=== PATIENT | female | born 1990 | race Caucasian/White ===

== ENCOUNTER 2016-12-21 17:18 | Emergency (ER) | payer SELFPAY ==
[~2016-12-21] VITALS: Ht 160 cm; Wt 81.7 kg
[~2016-12-21 17:18] MED LIST: TAB-TAB PO
[2016-12-21 17:20] VITALS: BP 118/78; PULSE 81; RESP 14; TEMP 98.4; O2SAT 98
--- NOTE | 2016-12-21 19:07 | PD ---
HPI Chief Complaint: Cold / Flu Symptoms Time Seen by Provider: 18:55 Travel History International Travel<30 days: No Contact w/Intl Traveler<30days: No Traveled to known affect area: No History of Present Illness HPI The patient is a 26-year-old female that has a sore throat for 3 days. She began vomiting today. She denies any diarrhea or abdominal pain. She has never had any abdominal surgeries and still has her gallbladder and appendix. She denies any fever, dysuria, frequency, urgency. She denies any cough. She has some slight ear pain but thinks this probably is from her sore throat. She is sexually active without protection and there is a possibility of . She does not have any insurance or primary care physician. She comes from [place]. She does not smoke. [facility] Past Medical History Asthma: Yes Diminished Hearing: No Respiratory: Yes (Asthma ) Immunizations Current: Yes ?: Not LMP: 11/11/16 : 1 Para: 0 Past Surgical History Other Surgery: Yes (BILATERAL CHEST TUBES R/T PNEUMONIA) Social History Alcohol Use: Yes (SOCIALLY) Tobacco Use: No Substance Use: No Allergies-Medications (Allergen,Severity, Reaction): Coded Allergies: No Known Allergies (Unverified , 12/21/16) Reported Meds & Prescriptions Reported Meds & Active Scripts Active Reported Lexapro (Escitalopram Oxalate) 20 Mg Tab 20 Mg PO DAILY Review of Systems Except as stated in HPI: all other systems reviewed are Neg Physical Exam Narrative GENERAL: The patient appears moderately dehydrated but is alert, oriented 3 and slight apparent distress with her sore throat. Her vital signs are normal. SKIN: Focused skin assessment warm/dry. HEAD: Atraumatic. Normocephalic. EYES: Pupils equal and round. No scleral icterus. No injection or drainage. ENT: No nasal bleeding or discharge. Mucous membranes pink and moist. The tympanic membranes are clear but the throat is erythematous without exudate or abscess. NECK: Trachea midline. No JVD. CARDIOVASCULAR: Regular rate and rhythm. No murmur appreciated. RESPIRATORY: No accessory muscle use. Clear to auscultation. Breath sounds equal bilaterally. GASTROINTESTINAL: Abdomen soft, non-tender, nondistended. Hepatic and splenic margins not palpable. No guarding or rebound is present. MUSCULOSKELETAL: No obvious deformities. No clubbing. No cyanosis. No edema. NEUROLOGICAL: Awake and alert. No obvious cranial nerve deficits. Motor grossly within normal limits. Normal speech. PSYCHIATRIC: Appropriate mood and affect; insight and judgment normal. Data Data Last Documented VS Vital Signs Date Time Temp Pulse Resp B/P Pulse Ox O2 Delivery O2 Flow Rate FiO2 12/21/16 19:35 18 100 Room Air 12/21/16 19:35 98.2 79 137/82 Orders Complete Blood Count With Diff (12/21/16 19:04) Basic Metabolic Panel (Bmp) (12/21/16 19:04) Beta Hcg (Quant/Titer) (12/21/16 19:04) Sodium Chlor 0.9% 1000 Ml Inj (Ns 1000 M (12/21/16 19:15) Ondansetron Inj (Zofran Inj) (12/21/16 19:15) Group A Rapid Strep Screen (12/21/16 19:09) Strep Culture (Group A) (12/21/16 19:30) Labs Laboratory Tests Test 12/21/16 19:35 White Blood Count 13.8 TH/MM3 Red Blood Count 4.10 MIL/MM3 Hemoglobin 10.5 GM/DL Hematocrit 32.6 % Mean Corpuscular Volume 79.4 FL Mean Corpuscular Hemoglobin 25.5 PG Mean Corpuscular Hemoglobin 32.1 % Concent Red Cell Distribution Width 16.0 % Platelet Count 225 TH/MM3 Mean Platelet Volume 10.1 FL Neutrophils (%) (Auto) 74.6 % Lymphocytes (%) (Auto) 14.7 % Monocytes (%) (Auto) 8.2 % Eosinophils (%) (Auto) 0.2 % Basophils (%) (Auto) 2.3 % Neutrophils # (Auto) 10.4 TH/MM3 Lymphocytes # (Auto) 2.0 TH/MM3 Monocytes # (Auto) 1.1 TH/MM3 Eosinophils # (Auto) 0.0 TH/MM3 Basophils # (Auto) 0.3 TH/MM3 CBC Comment DIFF FINAL Differential Comment Sodium Level 139 MEQ/L Potassium Level 3.8 MEQ/L Chloride Level 106 MEQ/L Carbon Dioxide Level 24.4 MEQ/L Anion Gap 9 MEQ/L Blood Urea Nitrogen 10 MG/DL Creatinine 0.68 MG/DL Estimat Glomerular Filtration 105 ML/MIN Rate Random Glucose 84 MG/DL Calcium Level 8.3 MG/DL Human Chorionic Gonadotropin, LESS THAN 1 Quant MIU/ML MDM Medical Decision Making Medical Screen Exam Complete: Yes Emergency Medical Condition: Yes Medical Record Reviewed: Yes Interpretation(s) The CBC shows a white count of 13,800 with a mild anemia with a hemoglobin of 10.5 and hematocrit of 32.6. It is otherwise unremarkable. The strep screen is negative for group A strep antigen. The basic metabolic profile is normal and the beta-hCG is less than 1. Differential Diagnosis Dehydration, anemia, electrolyte disorder, viral syndrome, strep pharyngitis, viral pharyngitis Narrative Course By history and clinical examination the patient was mildly dehydrated. It is now a 851 PM and the patient has no nausea. She is successfully drinking Gatorade now. Impression: Viral syndrome with viral pharyngitis Plan: The patient be given Phenergan every 6 hours as needed for nausea and increase clear liquid intake. She will get a 4 day work excuse. Diagnosis Primary Impression: Viral syndrome Additional Impression: Viral pharyngitis Additional Instructions: As we discussed, it is important to increase clear liquid intake. The Phenergan regularly, every 6 hours to prevent nausea/vomiting so that you are able to hydrate herself well. Follow-up next week with a primary care physician. Med/Other Pt SpecificInfo: Prescription(s) given Scripts Promethazine (Phenergan)25 Mg [id number] Mg PO Q6H PRN (NAUSEA OR VOMITING) #21 TAB Ref 0 Prov:Anuj De Jesus MD 12/21/16 Disposition: 01 DISCHARGE HOME Condition: Stable Anuj De Jesus MD Dec 21, 2016 19:07
[2016-12-21] MEDS ORDERED: ONDANSETRON HCL 4 MG/2 ML VIAL IV ONE (19:15)
[2016-12-21 19:35] VITALS: BP 137/82; PULSE 79; RESP 18; TEMP 98.2; O2SAT 100
[2016-12-21] MEDS: SODIUM CHLOR 0.9% 1000 ML INJ 1,000 ML IV SCH ×2 (19:43→20:32)
[2016-12-21 19:47] LABS: AUTOMATED NEUTROPHIL # 10.4 TH/MM3 (1.8-7.7); BASOPHIL # 0.3 TH/MM3 (0-0.2); BASOPHIL % 2.3 % (0.0-2.0); EOSINOPHIL % 0.2 % (0.0-4.0); HEMATOCRIT 32.6 % (35.0-46.0); LYMPH % 14.7 % (9.0-44.0); MEAN CELL VOLUME 79.4 FL (80.0-100.0); MEAN CORPUSCULAR HEMOGLOBIN 25.5 PG (27.0-34.0); MEAN CORPUSCULAR HGB CONC 32.1 % (32.0-36.0); MONO % 8.2 % (0.0-8.0); NEUT % 74.6 % (16.0-70.0); PLATELET COUNT 225 TH/MM3 (150-450); WHITE BLOOD COUNT 13.8 TH/MM3 (4.0-11.0)
[2016-12-21] MEDS ORDERED: LEXA20TA PO (19:57)
[2016-12-21 19:59] LABS: HEMO FLAGS DIFF FINAL
[2016-12-21 20:00] VITALS: BP 124/68; PULSE 82; RESP 18; O2SAT 100
[2016-12-21 20:16] LABS: CHLORIDE 106 MEQ/L (98-107); POTASSIUM 3.8 MEQ/L (3.5-5.1); SODIUM (NA) 139 MEQ/L (136-145)
[2016-12-21 20:18] LABS: ANION GAP 9 MEQ/L (5-15); BICARBONATE 24.4 MEQ/L (21.0-32.0)
[2016-12-21 20:19] LABS: BLOOD UREA NITROGEN 10 MG/DL (7-18)
[2016-12-21 20:22] LABS: GLOMERULAR FILTRATION RATE 105 ML/MIN (>89)
[2016-12-21 20:26] LABS: BETA HCG QUANT LESS THAN 1 MIU/ML (0-5)
[2016-12-21] MEDS ORDERED: PROM25TA10 PO (20:53)
[2016-12-21 21:00] VITALS: BP 119/71; PULSE 80; RESP 18; O2SAT 100
[2016-12-21 21:30] VITALS: BP 125/78
== END 2016-12-21 21:33 | disposition home or self-care (01) ==
LOC: PHED 17:18
DX: D64.9 Anemia, unspecified (principal); J02.8 Acute pharyngitis due to other specified organisms; B34.9 Viral infection, unspecified
CPT/HCPCS: 80048; 84702; 85025; 87081; 87880; 96361; 96374; 99284; J2405; J7030

== ENCOUNTER 2017-01-30 23:37 | Emergency (ER) | payer SELFPAY ==
[~2017-01-30] VITALS: Ht 167.6 cm; Wt 88.5 kg
[~2017-01-30 23:37] MED LIST changes: +LEXA20TA PO; +PROM25TA10 PO; -TAB-TAB PO
[2017-01-30 23:45] VITALS: BP 123/84; PULSE 84; RESP 16; TEMP 97.8; O2SAT 100
[2017-01-31 00:27] LABS: BLOOD, URINE TRACE (NEG); GLUCOSE,URINE NEG (NEG); KETONE, URINE NEG (NEG); NITRITE,URINE NEG (NEG)
[2017-01-31 00:33] LABS: BACTERIA, URINE RARE /hpf; COMMENT (UR) CULT NOT INDICATED; CULTURE IF INDICATED CULT NOT INDICATED; URINE COLOR YELLOW (YELLW/STRAW); WBC, URINE 0-2 /hpf (0-5)
[2017-01-31] MEDS ORDERED: KETOROLAC TROMETHAMINE 30 MG/ML (IVP) VIAL IV PUSH ONE (00:45)
[2017-01-31 01:07] LABS: AUTOMATED NEUTROPHIL # 6.4 TH/MM3 (1.8-7.7); BASOPHIL % 0.3 % (0.0-2.0); EOSINOPHIL # 0.1 TH/MM3 (0-0.4); EOSINOPHIL % 1.2 % (0.0-4.0); HEMATOCRIT 31.1 % (35.0-46.0); LYMPH % 25.2 % (9.0-44.0); LYMPHOCYTE # 2.5 TH/MM3 (1.0-4.8); MEAN CELL VOLUME 77.6 FL (80.0-100.0); MEAN CORPUSCULAR HEMOGLOBIN 24.8 PG (27.0-34.0); MONO % 8.8 % (0.0-8.0); NEUT % 64.5 % (16.0-70.0); PLATELET COUNT 225 TH/MM3 (150-450); RED CELL DISTRIBUTION WIDTH 14.5 % (11.6-17.2); WHITE BLOOD COUNT 9.9 TH/MM3 (4.0-11.0)
[2017-01-31 01:10] LABS: HEMO FLAGS DIFF FINAL
[2017-01-31 01:15] LABS: POTASSIUM 3.9 MEQ/L (3.5-5.1)
[2017-01-31 01:18] LABS: BICARBONATE 25.6 MEQ/L (21.0-32.0)
[2017-01-31 01:41] VITALS: BP 95/48; PULSE 76; RESP 16; O2SAT 98
--- NOTE | 2017-01-31 01:43 | PD ---
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 Last menstrual period was 01/11/17 and normal for her. Patient denies . Patient estimates pain 7/10 in intensity. Patient has taken no medications for discomfort. Patient denies vaginal discharge vaginal bleeding dysuria frequency urgency flank pain fever or chills. Patient's had no nausea vomiting or diarrhea. No report of anorexia. Patient is unable to identify exacerbating or alleviating factors. PFSH Past Medical History Narrative Medical Anemia asthma migraine pneumonia anxiety depression; chest tubes x 2; alcohol use; nursing notes reviewed Anemia: Yes Asthma: Yes Diminished Hearing: No Respiratory: Yes (Asthma ) Immunizations Current: Yes Migraines: Yes Pneumonia: Yes Tetanus Vaccination: < 5 Years Influenza Vaccination: No ?: Unknown LMP: 01/11/17 : 2 Para: 0 Miscarriage: 1 : 1 Dilation and Curettage (D&C): Yes Past Surgical History Other Surgery: Yes (BILATERAL CHEST TUBES R/T PNEUMONIA: AGE 16) Social History Alcohol Use: Yes (SOCIALLY) Tobacco Use: No Substance Use: No Allergies-Medications (Allergen,Severity, Reaction): Coded Allergies: No Known Allergies (Unverified , 01/30/17) Reported Meds & Prescriptions Reported Meds & Active Scripts Active Reported Lexapro (Escitalopram Oxalate) 20 Mg Tab 20 Mg PO DAILY Review of Systems Except as stated in HPI: all other systems reviewed are Neg General / Constitutional: No: Fever, Chills HENT: No: Congestion Cardiovascular: No: Chest Pain or Discomfort Respiratory: No: Shortness of Breath Gastrointestinal: No: Nausea, Vomiting, Diarrhea, Abdominal Pain, Loss of Appetite Genitourinary: Positive: Pelvic Pain, No: Urgency, Frequency, Dysuria, Discharge, Vaginal Bleeding Musculoskeletal: No: Myalgias, Arthralgias Skin: No Rash Neurologic: No: Weakness Psychiatric: No: Anxiety Hematologic/Lymphatic: No: Easy Bruising Physical Exam Narrative GENERAL: Well-developed well-nourished female in acute distress no respiratory distress SKIN: Warm and dry. HEAD: Normocephalic. EYES: No scleral icterus. No injection or drainage. NECK: Supple, trachea midline. No JVD or lymphadenopathy. CARDIOVASCULAR: Regular rate and rhythm without murmurs, gallops, or rubs. RESPIRATORY: Breath sounds equal bilaterally. No accessory muscle use. GASTROINTESTINAL: Abdomen soft, non-tender, nondistended. Pelvic exam: Normal external exam no redness induration or lesions; speculum exam no blood no clots no tissue no discharge cervical os is closed; bimanual exam no cervical motion tenderness no adnexal mass or tenderness cervical os is closed. MUSCULOSKELETAL: No cyanosis, or edema. BACK: Nontender without obvious deformity. No CVA tenderness. Data Data Last Documented VS Vital Signs Date Time Temp Pulse Resp B/P Pulse Ox O2 Delivery O2 Flow Rate FiO2 01/31/17 01:41 76 16 95/48 98 Room Air 01/30/17 23:45 97.8 Orders Urinalysis - C+S If Indicated (01/31/17 00:09) Complete Blood Count With Diff (01/31/17 00:37) Basic Metabolic Panel (Bmp) (01/31/17 00:37) Gc And Chlamydia Pcr (01/31/17 00:37) Wet Prep Profile (01/31/17 00:37) Ua Includes Microscopic (01/31/17 00:37) Ed Urine Pregnancytest Poc (01/31/17 00:37) Ketorolac Inj (Toradol Inj) (01/31/17 00:45) Labs Laboratory Tests Test 01/31/17 01/31/17 01/31/17 00:05 00:23 01:00 Urine Color YELLOW Urine Turbidity CLEAR Urine pH 6.0 Urine Specific [place] 1.017 Urine Protein NEG mg/dL Urine Glucose (UA) NEG mg/dL Urine Ketones NEG mg/dL Urine Occult Blood TRACE Urine Nitrite NEG Urine Bilirubin NEG Urine Leukocyte Esterase NEG Urine RBC 3-5 /hpf Urine WBC 0-2 /hpf Urine Squamous Epithelial 6-8 /hpf Cells Urine Bacteria RARE /hpf Microscopic Urinalysis Comment CULT NOT INDICATED Clue Cells (Wet Prep) NONE SEEN Vaginal Trichomonas (Wet Prep) NONE SEEN Vaginal Yeast (Wet Prep) NONE SEEN White Blood Count 9.9 TH/MM3 Red Blood Count 4.00 MIL/MM3 Hemoglobin 9.9 GM/DL Hematocrit 31.1 % Mean Corpuscular Volume 77.6 FL Mean Corpuscular Hemoglobin 24.8 PG Mean Corpuscular Hemoglobin 32.0 % Concent Red Cell Distribution Width 14.5 % Platelet Count 225 TH/MM3 Mean Platelet Volume 9.4 FL Neutrophils (%) (Auto) 64.5 % Lymphocytes (%) (Auto) 25.2 % Monocytes (%) (Auto) 8.8 % Eosinophils (%) (Auto) 1.2 % Basophils (%) (Auto) 0.3 % Neutrophils # (Auto) 6.4 TH/MM3 Lymphocytes # (Auto) 2.5 TH/MM3 Monocytes # (Auto) 0.9 TH/MM3 Eosinophils # (Auto) 0.1 TH/MM3 Basophils # (Auto) 0.0 TH/MM3 CBC Comment DIFF FINAL Differential Comment Sodium Level 137 MEQ/L Potassium Level 3.9 MEQ/L Chloride Level 106 MEQ/L Carbon Dioxide Level 25.6 MEQ/L Anion Gap 5 MEQ/L Blood Urea Nitrogen 17 MG/DL Creatinine 0.85 MG/DL Estimat Glomerular Filtration 81 ML/MIN Rate Random Glucose 90 MG/DL Calcium Level 8.0 MG/DL MDM Medical Decision Making Medical Screen Exam Complete: Yes Emergency Medical Condition: Yes Medical Record Reviewed: Yes Interpretation(s) [id number] hCG: NegativeCBC & BMP Diagram 01/31/17 01:00 Vital Signs Date Time Temp Pulse Resp B/P Pulse Ox O2 Delivery O2 Flow Rate FiO2 01/30/17 23:45 97.8 84 16 123/84 100 Differential Diagnosis Pelvic pain, UTI, ectopic , ruptured ovarian cyst, mittelschmerz; also to consider ovarian torsion, appendicitis Narrative Course Specimens collected and sent for resulting At 1 AM patient now requesting that right eye be evaluated as she reports for the first time that yesterday while using some spray: She dropped the container and she felt some of the clock spray splash into her right eye she states she flushed the eye vigorously with tap water. Patient continues to notice some irritation of the eye and requests it be evaluated at this time. Pupil round reactive to light extraocular muscles intact no injection no discharge or drainage; fluorescein stain without uptake; pH within normal range. Patient denies any vision loss or vision disturbance. Lab values grossly within normal range [id number] hCG negative; patient given Toradol 30 mg IV At 1:50 AM patient is pain-free and stable for outpatient management; patient encouraged to follow-up with her primary care provider and aoc plans intelligence officer chief. Patient is encouraged to use as tolerated ibuprofen and may use weight-based next one dose for a few days, but is encouraged to avoid prolonged use of this dosage. Patient acknowledges understanding of diagnosis and recommendation for outpatient follow-up. Minor eye irritation from what sounds like a splash of Clorox yesterday in the emergency department there is no evidence for cord abrasion ulceration injection or irritation. She is found to be grossly within normal range. Diagnosis Primary Impression: Pelvic pain in female Additional Impressions: Mittelschmerz phenomenon Irritation of right eye Anemia Referrals: Portfolio Architect call for appointment Map Mounter as needed Primary Care Physician call for appointment Patient Instructions: General Instructions Additional Instructions: Increase fluid hydration Follow-up with primary care provider Take as needed as tolerated ibuprofen 800 mg as often as every 8 hours may use high-dose ibuprofen for up to 2-3 days avoid prolonged use Return to the emergency department for any concerns or change in condition Follow-up with your primary care provider/aoc plans intelligence officer chief call office to schedule appointment; follow-up with rivet machine operator as needed Med/Other Pt SpecificInfo: No Change to Meds Disposition: 01 DISCHARGE HOME Condition: Stable Una Ortiz MD Jan 31, 2017 01:43
[2017-01-31 01:51] VITALS: BP 101/54
[2017-01-31 11:07] LABS: CHLAMYDIA PCR NOT DETECTED (NOT DETECT); NEISSERIA PCR NOT DETECTED (NOT DETECT)
== END 2017-01-31 02:02 | disposition home or self-care (01) ==
LOC: PHED 23:37
DX: N94.0 Mittelschmerz (principal); D64.9 Anemia, unspecified; H57.8 Other specified disorders of eye and adnexa
CPT/HCPCS: 80048; 81001; 84703; 85025; 87210; 87491; 87591; 96374; 99284; J1885

== ENCOUNTER 2017-06-28 10:29 | Emergency (ER) | payer MEDICAID ==
[~2017-06-28] VITALS: Ht 167.6 cm; Wt 84.0 kg
[~2017-06-28 10:29] MED LIST changes: -PROM25TA10 PO
[2017-06-28 10:32] VITALS: BP 131/74; PULSE 75; RESP 20; TEMP 97.9; O2SAT 100
--- NOTE | 2017-06-28 10:39 | PD ---
HPI Chief Complaint: Related Problem Time Seen by Provider: 10:39 Travel History International Travel<30 days: No Contact w/Intl Traveler<30days: No Traveled to known affect area: No History of Present Illness HPI 27-year-old female came to the emergency room with history of recently found out to be and complaining of some backache. Patient is not sure about her last menstrual period. She has history of irregular periods. She thinks it could've been last month or the month before. She checked for 1 week ago and was positive. She's been having the lower backache since then. No history of spotting. Patient is A2. Her first child was stillborn at 27 weeks of gestation. No history of nausea vomiting. Vital signs were otherwise stable. [facility] Past Medical History Narrative Medical List of her past medical, surgical, social and family history is reviewed from the nursing note. Anemia: Yes Asthma: Yes Diminished Hearing: No Respiratory: Yes (Asthma ) Immunizations Current: Yes Migraines: Yes Pneumonia: Yes ?: LMP: MAR/APR : 2 Para: 0 Miscarriage: 1 : 1 Dilation and Curettage (D&C): Yes Past Surgical History Other Surgery: Yes (BILATERAL CHEST TUBES R/T PNEUMONIA: AGE 16) Social History Alcohol Use: Yes (SOCIALLY) Tobacco Use: No Substance Use: No Allergies-Medications (Allergen,Severity, Reaction): Coded Allergies: No Known Allergies (Unverified Adverse Reaction, Unknown, 06/28/17) Comments No known drug allergies. Reported Meds & Prescriptions Reported Meds & Active Scripts Active No Active Prescriptions or Reported Medications Narrative Medication List of her home medications reviewed from the nursing note. Review of Systems Except as stated in HPI: all other systems reviewed are Neg Physical Exam Narrative GENERAL: Awake, alert, no obvious distress SKIN: Focused skin assessment warm/dry. HEAD: Atraumatic. Normocephalic. EYES: Pupils equal and round. No scleral icterus. No injection or drainage. ENT: No nasal bleeding or discharge. Mucous membranes pink and moist. NECK: Trachea midline. No JVD. CARDIOVASCULAR: Regular rate and rhythm. No murmur appreciated. RESPIRATORY: No accessory muscle use. Clear to auscultation. Breath sounds equal bilaterally. GASTROINTESTINAL: Abdomen soft, non-tender, nondistended. Hepatic and splenic margins not palpable. MUSCULOSKELETAL: No obvious deformities. No clubbing. No cyanosis. No edema. NEUROLOGICAL: Awake and alert. No obvious cranial nerve deficits. Motor grossly within normal limits. Normal speech. PSYCHIATRIC: Appropriate mood and affect; insight and judgment normal. Data Data Last Documented VS Orders Orders Urinalysis - C+S If Indicated (06/28/17 10:36) Ed Urine Pregnancytest Poc (06/28/17 10:36) Beta Hcg (Quant/Titer) (06/28/17 11:14) Ed Discharge Order (06/28/17 12:21) Labs Laboratory Tests Test 06/28/17 10:40 06/28/17 11:38 Urine Collection Type CLEAN CATCH Urine Color YELLOW Urine Turbidity CLEAR Urine pH 6.0 Urine Specific [place] 1.021 Urine Protein NEG mg/dL Urine Glucose (UA) NEG mg/dL Urine Ketones NEG mg/dL Urine Occult Blood NEG Urine Nitrite NEG Urine Bilirubin NEG Urine Leukocyte Esterase NEG Urine WBC 0-2 /hpf Urine Squamous Epithelial Cells 0-5 /hpf Microscopic Urinalysis Comment CULT NOT INDICATED Human Chorionic Gonadotropin, Quant 241 MIU/ML MDM Medical Decision Making Medical Screen Exam Complete: Yes Emergency Medical Condition: Yes Medical Record Reviewed: Yes Differential Diagnosis Early , UTI, pelvic pain and Narrative Course 12:19 PM based on the bedside ultrasound that was done by me a beta hCG Quant was ordered. UA is within normal limits. Beta hCG Quant is come back and it's only 214. Given this it could be a very early . I am comfortable discharging the patient home. She'll go home with instructions. Procedures Procedure Narrative Emergency Department Pelvic ultrasound was performed with patient consent. The curvilinear probe was used in the transverse and sagittal views within the suprapubic region revealing no intrauterine . EKG Prior to Arrival: No Diagnosis Primary Impression: Early stage of Additional Impression: Pelvic pain in Referrals: Primary Care Physician Additional Instructions: Please follow-up with an OB for the . Take vitamins once a day. Return to the ER if condition worsens, bleeding or spotting or any other complaints. The fluid to stay hydrated. Med/Other Pt SpecificInfo: No Change to Meds Scripts No Active Prescriptions or Reported Meds Disposition: 01 DISCHARGE HOME Condition: Stable Raghavendra Mendez MD Jun 28, 2017 10:39
[2017-06-28 11:04] LABS: BILIRUBIN, URINE NEG (NEG); BLOOD, URINE NEG (NEG); GLUCOSE,URINE NEG (NEG); KETONE, URINE NEG (NEG); NITRITE,URINE NEG (NEG); URINE LEUKOCYTE ESTERASE NEG (NEG)
[2017-06-28 11:08] LABS: URINE COLOR YELLOW (YELLW/STRAW)
[2017-06-28 11:09] LABS: SQUAMOUS EPITHELIAL CELL URINE 0-5 /hpf (0-5); WBC, URINE 0-2 /hpf (0-5)
== END 2017-06-28 12:32 | disposition home or self-care (01) ==
LOC: PHED 10:29
DX: O26.891 Other specified pregnancy related conditions, first trimester (principal); R10.2 Pelvic and perineal pain; O99.011 Anemia complicating pregnancy, first trimester; O99.511 Diseases of the respiratory system complicating pregnancy, first trimester; J45.909 Unspecified asthma, uncomplicated; Z34.91 Encounter for supervision of normal pregnancy, unspecified, first trimester
CPT/HCPCS: 81001; 84702; 84703; 99284

== ENCOUNTER 2017-11-23 17:07 | Emergency (ER) | payer MEDICAID, OTHER ==
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
== END 2017-11-23 18:09 | disposition home or self-care (01) ==
LOC: HOBED 17:07
DX: O36.8120 Decreased fetal movements, second trimester, not applicable or unspecified (principal); Z3A.25 25 weeks gestation of pregnancy
CPT/HCPCS: 99282

== ENCOUNTER 2018-02-27 12:03 | Inpatient (IN) ==
[2018-02-27] MEDS ORDERED: fentaNYL Citrate Inj 100 MCG/2 ML Ampul IV.PUSH PRN ×2 (12:33)
[2018-02-27] MEDS ORDERED: Sod Chloride 0.9% Inj 1,000 ML IV.CONT PRN (12:33)
[2018-02-27] MEDS ORDERED: Sodium Chlor 0.9% Inj 500 ML IV.SIG PRN (12:33)
[2018-02-27] MEDS ORDERED: Oxytocin 30 Units/500ml Premix 30 UNITS/500 ML BAG IV.SIG ONE (12:33)
[2018-02-27] MEDS ORDERED: Naloxone Inj 0.4 MG/ML Vial IV.PUSH PRN (12:33)
[2018-02-27] MEDS ORDERED: Citric Acid/Sodium Citrate Liq 30 ML UDC PO SCH (12:45)
[2018-02-27 13:19] LABS: Baso % (Auto) 0.2 % (0.0-2.0); Eos % (Auto) 0.2 % (0.0-4.0); Hematocrit 32.4 % (35.0-46.0); Hemoglobin 10.6 gm/dL (11.6-15.3); Lymph # (Auto) 1.4 th/mm3 (1.0-4.8); Lymph % (Auto) 13.7 % (9.0-44.0); Mean Corpuscular HGB Conc 32.7 % (32.0-36.0); Mean Corpuscular Hemoglobin 28.8 pg (27.0-34.0); Mean Corpuscular Volume 88.1 fL (80.0-100.0); Mean Platelet Volume 10.1 fL (7.0-11.0); Mono # (Auto) 0.5 th/mm3 (0.0-0.9); Neut # (Auto) 8.3 th/mm3 (1.8-7.7); Neut % (Auto) 80.9 % (16.0-70.0); Platelet Count 133 th/mm3 (150-450); Red Blood Count 3.68 mil/mm3 (4.00-5.30); Red Cell Distribution Width 15.3 % (11.6-17.2); White Blood Count 10.3 th/mm3 (4.0-11.0)
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
[2018-02-27] MEDS ORDERED: Oxytocin 30 Units/500ml Premix 30 UNITS/500 ML BAG IV.SIG PRN (14:50)
[2018-02-27 14:51] LABS: Bacteria,Urine Occasional /hpf; Bilirubin,Urine Negative (Negative); Clarity,Urine Hazy (Clear); Color,Urine Yellow (Yellw/Straw); Glucose,Urine (UA) Negative (Negative); Leukocyte Esterase,Urine Trace (Negative); Nitrite,Urine Negative (Negative); Specific Gravity,Urine 1.016 (1.002-1.035); Squamous Epithelial Cell,Urine 3 /hpf (0-5)
[2018-02-27 15:06] LABS: Albumin 2.9 g/dL (3.4-5.0); Anion Gap 10 meq/L (5-15); Calcium 8.6 mg/dL (8.5-10.1); Carbon Dioxide 22.7 meq/L (21.0-32.0); Chloride 108 meq/L (98-107); Glomerular Filtration Rate Greater Than 89 mL/min (>89); Potassium 3.8 meq/L (3.5-5.1); Sodium 141 meq/L (136-145)
[2018-02-27 15:21] LABS: Alanine Aminotransferase 12 U/L (10-53); Alkaline Phosphatase 109 U/L (45-117); Aspartate Aminotransferase 10 U/L (15-37); Blood Urea Nitrogen 5 mg/dL (7-18); Glucose,Random 65 mg/dL (74-106); Total Protein 6.7 g/dL (6.4-8.2); Uric Acid 4.5 mg/dl (2.6-6.0)
[2018-02-27 16:08] LABS: Amphetamine Urine With Conf Neg (Neg); Benzodiazepine Urine With Conf Neg (Neg)
[2018-02-27] MEDS ORDERED: Acetaminophen 325 MG Tablet PO PRN (19:00)
[2018-02-27] MEDS ORDERED: Zolpidem Tartrate 5 MG Tablet PO PRN (19:00)
[2018-02-28] MEDS ORDERED: Lidocaine PF 1% Inj 5 ML Vial ONE (00:11)
[2018-02-28] MEDS ORDERED: Lidocaaine 1.5%/Epinephrine 1:200,000 PF Inj 5 ML Amp ONE (00:11)
[2018-02-28] MEDS ORDERED: Bupivacaine PF 0.25% Inj 10 ML Vial ONE (00:11)
[2018-02-28] MEDS ORDERED: fentaNYL 2MCG-Bupiv 0.125% Epi 150 ML EPIDURAL ONE (00:12)
[2018-02-28] MEDS ORDERED: Oxytocin 30 Units/500ml Premix 30 UNITS/500 ML BAG IV.CONT PRN (08:52)
[2018-02-28] MEDS ORDERED: Bisacodyl 10 MG Supp RECTAL PRN (08:52)
[2018-02-28] MEDS ORDERED: Naloxone Inj 0.4 MG/ML Vial IV.PUSH PRN (08:52)
[2018-02-28] MEDS ORDERED: Acetaminophen 325 MG Tablet PO PRN (08:52)
[2018-02-28] MEDS ORDERED: Zolpidem Tartrate 5 MG Tablet PO PRN (08:52)
--- NOTE | 2018-02-28 09:02 | P.OBDELI ---
Weeks Gestation: 39 Patient Started Active Labor: No Active Labor Start Date: 02/27/18 Medical Induction of Labor: Yes (for oligohydramnios) Medical Induction Start Date: 02/27/18 Artificial Rupture of Membrane: No Anesthesia: Epidural Episiotomy: none Vaginal Delivery: Normal Presentation: Occiput anterior Nuchal Cord: None Delayed Cord Clamping (45 sec): Yes Placenta: Spontaneous delivery, Intact, 3 vessel cord Repair: Vicryl running : Female Infant Female A Delivery Date: 02/28/18 Weight: 3.43 kg score (1 min): 8 score (5 min): 9 (nice controlled delivery of baby) Additional Information: Nice controlled delivery of the baby. She sustained long first degree bilateral labial lacerations requiring 5-0 vicryl. She also had a second degree perineal laceration repaired in the usual fashion with 3-0 vicryl. The lacerations were repaired with 8 sutures as the labial lacerations while superficial were quite wide. the repair at the end was excellent. Will apply a ice diaper.
[2018-02-28] MEDS ORDERED: fentaNYL Citrate Inj 100 MCG/2 ML Ampul EPIDURAL ONE (09:35)
[2018-02-28] MEDS ORDERED: fentaNYL 2MCG-Bupiv 0.125% Epi 150 ML EPIDURAL PRN (09:35)
[2018-02-28] MEDS: Benzocaine 20% Top Spray 60 ML Can TOPICAL PRN (12:15)
[2018-02-28] MEDS: Witch Hazel 50%/Glyderin 12.5% 40 Pad Jar RECTAL PRN (12:16)
[2018-02-28] MEDS ORDERED: Diphtheria/Tetanus/Pertussis Vaccine Inj 0.5 ML Syringe IM ONE (16:00)
[2018-02-28] MEDS ORDERED: Measles/Mumps/Rubella Vaccine Inj 0.5 ML Vial SQ ONE (16:00)
[2018-02-28] MEDS ORDERED: Rho Immune Globulin Inj 1,500 UNIT/1.3 ML Vial IM ONE (16:00)
[2018-02-28] MEDS ORDERED: Varicella Vaccine Live 1350 UNITS/0.5 ML Vial SQ ONE (16:00)
[2018-02-28] MEDS: Senna/Docusate Sodium 8.6/50 MG Tablet PO SCH ×2 (21:02)
[2018-03-01] MEDS: Prenatal Vit/Ca/Iron/Folic Acid Tablet PO SCH ×2 (08:12→09:36)
--- NOTE | 2018-03-01 09:33 | P.PNOB ---
Subjective Post day: 1 Interval history: feeling well, has vulvar pressure but pain well controlled. Mod lochia. wants to go home today Objective Vital Signs/I&O: Vital Signs 02/28/18 20:00 Temperature 98.1 F Pulse Rate 64 Respiratory Rate 18 Blood Pressure 142/82 H Result Diagrams: 02/27/18 12:10 02/27/18 12:10 Objective Remarks: GENERAL: Well-nourished, well-developed patient. CARDIOVASCULAR: Regular rate and rhythm without murmurs, gallops, or rubs. RESPIRATORY: Breath sounds equal bilaterally. No accessory muscle use. ABDOMEN/GI: Abdomen soft, non-tender. Fundus: Firm, non-tender at umbilicus. GENITOURINARY: Light to moderate bleeding. EXTREMITIES: No cyanosis or edema, non-tender, without signs of DVT. Medications and IVs: Active Medications Acetaminophen (Tylenol) 650 mg PO Q4H PRN PRN Reason: PAIN SCALE 1 TO 2 Al Hydroxide/Mg Hydroxide (Milk Of Magnesia Liq) 30 ml PO Q12H PRN PRN Reason: Mild Constipation Benzocaine (Americaine 20% Top [place]) 1 spray TOPICAL Q4H PRN PRN Reason: For Perineum Discomfort Last Admin: 02/28/18 12:15 Dose: 1 spray Bisacodyl (Dulcolax Supp) 10 mg RECTAL DAILY PRN PRN Reason: SEVERE CONSITIPATION Ephedrine Sulfate (Ephedrine/Ns Syringe) 10 mg IV.PUSH UNSCH PRN PRN Reason: SEE LABEL COMMENTS Stop: 03/01/18 09:35 Oxytocin (Pitocin 30 Units/Ns 500 Ml Premix) 30 units in 500 mls @ 2 mls/hr IV.SIG TITRATE PRN; Protocol PRN Reason: For induction of labor Oxytocin (Pitocin 30 Units/Ns 500 Ml Premix) 30 units in 500 mls @ 100 mls/hr IV.CONT UNSCH PRN PRN Reason: Heavy bleeding Fentanyl/Bupivacaine/Sodium Chlor (Fentanyl 2 Mcg-Bupiv 0.125% Epi) 150 mls @ 12 mls/hr EPIDURAL PRN PRN PRN Reason: for Labor Pain Ibuprofen (Motrin) 800 mg PO Q8H PRN PRN Reason: For Cramping Last Admin: 03/01/18 06:01 Dose: 800 mg Lactulose (Lactulose Liq) 30 ml PO DAILY PRN PRN Reason: SEVERE CONSITIPATION Miscellaneous Information (Misc Information) 1 each OTHER UNSCH PRN PRN Reason: SEE LABEL COMMENTS Stop: 03/01/18 09:35 Miscellaneous Information (Misc Information) 1 each OTHER UNSCH PRN PRN Reason: SEE LABEL COMMENTS Stop: 03/01/18 09:35 Naloxone HCl (Narcan Inj) 0.1 mg IV.PUSH Q2M PRN PRN Reason: for opiate reversal Ondansetron HCl (Zofran Odt) 4 mg PO Q6H PRN PRN Reason: NAUSEA OR VOMITING Oxycodone/Acetaminophen (Percocet 5/325 Mg) 2 tab PO Q4H PRN PRN Reason: PAIN SCALE 6 TO 10 Oxycodone/Acetaminophen (Percocet 5/325 Mg) 1 tab PO Q4H PRN PRN Reason: PAIN SCALE 3 TO 5 Last Admin: 03/01/18 06:01 Dose: 1 tab Vit/Calcium/Iron/Folic Ac (Stuartnatal Plus 3) 1 tab PO DAILY [facility] Last Admin: 03/01/18 08:12 Dose: Not Given Senna/Docusate Sodium (Radha-Colace) 1 tab PO BID [facility] Last Admin: 02/28/18 21:02 Dose: 1 tab Sennosides (Senokot) 17.2 mg PO Q12H PRN PRN Reason: Moderate Constipation Last Admin: 02/28/18 12:15 Dose: 17.2 mg Sodium Chloride (Ns Flush) 2 ml IV.FLUSH BID [facility] Last Admin: 03/01/18 02:50 Dose: Not Given Sodium Chloride (Ns Flush) 2 ml IV.FLUSH PRN PRN PRN Reason: FLUSH AFTER USING IV ACCESS Witch Valerie/Glycerin (Tucks Pads) 1 applicatio RECTAL QID PRN PRN Reason: HEMORRHOIDS Last Admin: 02/28/18 12:16 Dose: 1 applicatio Zolpidem Tartrate (Ambien) 5 mg PO HS PRN PRN Reason: SLEEP Assessment and Plan - Diagnosis (1) (spontaneous vaginal delivery) Code(s): O80 - Encounter for full-term uncomplicated delivery Status: Acute (2) Hypertension affecting in third trimester Code(s): O16.3 - Unspecified maternal hypertension, third trimester Status: Acute - Plan PPD 1 cont routine supportive care PP care reviewed dispo-home today Discharge Planning: home today
[2018-03-01] MEDS: Senna/Docusate Sodium 8.6/50 MG Tablet PO SCH (09:36)
[2018-03-01 09:53] VITALS: BP 130/82; PULSE 68; RESP 16; TEMP 97.7
[2018-03-01] MEDS: Witch Hazel 50%/Glyderin 12.5% 40 Pad Jar RECTAL PRN (11:30)
[2018-03-01] MEDS: Benzocaine 20% Top Spray 60 ML Can TOPICAL PRN (11:31)
== END 2018-03-01 13:05 | disposition home or self-care (01) ==
LOC: H2E 12:03 → H1EA 02-28 12:03
PROVIDERS: ADMIT Obstetrics & Gynecology; ATTEND Obstetrics & Gynecology